=== PATIENT | male | born 1960 | race Caucasian/White ===

== ENCOUNTER 2022-12-02 11:01 | Inpatient (IN) | payer MEDICARE, MEDICAID ==
[~2022-12-02] VITALS: Ht 182.9 cm; Wt 112.0 kg
[2022-12-02] MEDS ORDERED: NITROGLYCERIN 0.4 MG SL TAB SL ONE ×2 (11:04→12:00)
[2022-12-02] MEDS ORDERED: FUROSEMIDE INJECTION 10 ML ONE (11:06)
[2022-12-02] MEDS ORDERED: FUROSEMIDE 40 MG/4 ML VIAL IV ONE (11:15)
[2022-12-02 11:54] LABS: Basophils # (auto) 0.1 10 ^3/uL (0-0.2); Basophils % (auto) 1.5 % (0.0-2.0); Eosinophils # (auto) 0.2 10 ^3/uL (0-0.8); Hematocrit 35.1 % (41.0-53.0); Hemoglobin 11.6 g/dL (13.5-17.5); Lymphocytes # (auto) 1.4 10 ^3/uL (0.4-5.4); Lymphocytes % (auto) 22.4 % (10.0-50.0); Mean Corpuscular Hemoglobin 32.4 pg (28.0-32.0); Mean Corpuscular Hgb Conc. 33.1 g/dL (32.0-36.0); Mean Corpuscular Volume 97.8 fL (80.0-100.0); Monocytes # (auto) 0.5 10 ^3/uL (0-1.3); Monocytes % (auto) 7.1 % (0.0-12.0); Neutrophils # (auto) 4.2 10 ^3/uL (1.6-8.6); Nucleated Red Blood Cells % 0.1 %; Red Blood Cells 3.59 10^6/uL (4.5-5.90); Red Cell Distribution Width 15.3 % (11.8-14.3); White Blood Cell 6.4 10^3/uL (4.4-10.8)
[2022-12-02] MEDS ORDERED: ACETAMINOPHEN 325 MG TAB PO PRN (12:30)
[2022-12-02] MEDS ORDERED: PANTOPRAZOLE 40 MG/10 ML VIAL INJ IV ONE (12:30)
[2022-12-02] MEDS ORDERED: DEXTROSE (50%) 50ML SYRG IV PRN (12:30)
[2022-12-02] MEDS ORDERED: NITROGLYCERIN 0.4 MG SL TAB SL PRN (12:30)
[2022-12-02] MEDS ORDERED: MORPHINE SULFATE INJ 2 MG/ml SYRG IV PRN (12:30)
[2022-12-02 13:12] VITALS: BP 123/81
[2022-12-02 13:54] LABS: Urine Bacteria FEW /hpf (None Seen); Urine Blood 2+ /uL (Negative); Urine Specific Gravity 1.012 (1.001-1.035); Urine WBC 858 /hpf (0 - 3); Urine WBC Clumps PRESENT /hpf (None Seen)
[2022-12-02 14:41] LABS: Alcohol, Urine < 3.0 mg/dL (0-10); Amphetamine Screen, Urine NEGATIVE (NEGATIVE); Barbiturate Scree,Urine NEGATIVE (NEGATIVE); Benzodiazephine Screen, Urine NEGATIVE (NEGATIVE); Cannabinoid Screen, Urine NEGATIVE (NEGATIVE); Cocaine Screen, Urine NEGATIVE (NEGATIVE); Opiate Scree,Urine NEGATIVE (NEGATIVE); Phencyclidine Screen, Urine NEGATIVE (NEGATIVE)
[2022-12-02] MEDS ORDERED: TAMS0.4C36 PO (14:42)
[2022-12-02] MEDS ORDERED: AZITHROMYCIN 500MG/ 250ML 250 ML IV ONE (15:00)
[2022-12-02] MEDS ORDERED: cefTRIAXone 1GM/50ML D5W 50 ML IV ONE (15:00)
[2022-12-02] MEDS ORDERED: hydrALAZINE HCL 20 MG/ML VL IV PRN (15:00)
[2022-12-02 15:45] LABS: Cholesterol 192 mg/dL (< 200); Triglycerides 93 mg/dL (< 150)
[2022-12-02 15:47] LABS: HDL Cholesterol 53 mg/dL (40-59); LDL Cholesterol 126 mg/dL (< 100)
[2022-12-02] MEDS: ACCU-CHEK COMFORT CURVE STRIP VI SCH ×2 (16:40→22:00)
[2022-12-02] MEDS: InsuLIN REG 1unit/0.01ml Soln (100units/ml) SC SCH ×2 (16:40→22:00)
[2022-12-02 17:39] LABS: Albumin 3.5 g/dL (3.4-5.0); Bilirubin, Total 0.4 mg/dL (0.2-1.0); Magnesium 2.8 mg/dL (1.6-2.6); Total Protein 6.6 g/dL (6.4-8.2)
[2022-12-02 17:42] LABS: Potassium 6.2 mmol/L (3.5-5.1)
[2022-12-02] MEDS ORDERED: SODIUM ZIRCONIUM CYCL 10 GM PAK PO ONE (20:30)
[2022-12-02 22:00] VITALS: BP 127/79
[2022-12-02] MEDS: CARVEDILOL 3.125 MG TAB PO SCH (22:33)
[2022-12-03] VITALS (7 sets, daily range): BP systolic 115–141; BP diastolic 70–81
[2022-12-03 06:13] LABS: Potassium 4.9 mmol/L (3.5-5.1)
[2022-12-03 06:23] LABS: Albumin 3.1 g/dL (3.4-5.0); BUN/Creatinine Ratio 6.3 (10.0-20.0); Bilirubin, Total 0.4 mg/dL (0.2-1.0); Total Protein 5.9 g/dL (6.4-8.2)
[2022-12-03] MEDS: ACCU-CHEK COMFORT CURVE STRIP VI SCH ×4 (06:26→22:18)
[2022-12-03] MEDS: InsuLIN REG 1unit/0.01ml Soln (100units/ml) SC SCH ×4 (06:26→22:00)
[2022-12-03 07:27] LABS: Basophils # (auto) 0.1 10 ^3/uL (0-0.2); Basophils % (auto) 1.9 % (0.0-2.0); Eosinophils # (auto) 0.2 10 ^3/uL (0-0.8); Eosinophils % (auto) 5.1 % (0.0-7.0); Hematocrit 27.9 % (41.0-53.0); Hemoglobin 9.5 g/dL (13.5-17.5); Lymphocytes % (auto) 21.8 % (10.0-50.0); Mean Corpuscular Hemoglobin 33.1 pg (28.0-32.0); Mean Corpuscular Hgb Conc. 34.1 g/dL (32.0-36.0); Monocytes # (auto) 0.6 10 ^3/uL (0-1.3); Neutrophils # (auto) 2.8 10 ^3/uL (1.6-8.6); Neutrophils % (auto) 59.2 % (37.0-80.0); Red Blood Cells 2.88 10^6/uL (4.5-5.90); White Blood Cell 4.7 10^3/uL (4.4-10.8)
[2022-12-03] MEDS: cefTRIAXone 1GM/50ML D5W 50 ML IV SCH (09:18)
[2022-12-03] MEDS: AZITHROMYCIN 500MG/ 250ML 250 ML IV SCH (09:21)
[2022-12-03] MEDS: PANTOPRAZOLE 40 MG/10 ML VIAL INJ IV SCH (09:21)
[2022-12-03] MEDS: FUROSEMIDE 40 MG/4 ML VIAL IV SCH (09:21)
[2022-12-03] MEDS: TAMSULOSIN HYDROCHLORIDE 0.4 MG CAP PO SCH (09:22)
[2022-12-03] MEDS: CARVEDILOL 3.125 MG TAB PO SCH ×2 (09:22→22:18)
[2022-12-03] MEDS: IPRATROPIUM BROM 0.5 MG/2.5ML INH SOL NEB PRN (19:14)
[2022-12-03] MEDS: ALBUTEROL SULF 2.5 MG/0.5ML(0.5%) NEB SOLN NEB PRN (19:14)
[2022-12-04] MEDS: IPRATROPIUM BROM 0.5 MG/2.5ML INH SOL NEB PRN ×2 (00:20→21:55)
[2022-12-04] MEDS: ALBUTEROL SULF 2.5 MG/0.5ML(0.5%) NEB SOLN NEB PRN ×2 (00:20→21:55)
[2022-12-04 05:00] VITALS: BP 120/76
[2022-12-04] MEDS: ACCU-CHEK COMFORT CURVE STRIP VI SCH ×2 (06:54→11:30)
[2022-12-04] MEDS: InsuLIN REG 1unit/0.01ml Soln (100units/ml) SC SCH ×2 (06:54→11:30)
[2022-12-04] MEDS ORDERED: SODIUM CHL 0.9% 1000 ML BAG XX ONE (07:00)
[2022-12-04 07:05] LABS: Hematocrit 27.3 % (41.0-53.0); Hemoglobin 9.4 g/dL (13.5-17.5)
[2022-12-04 09:00] VITALS: BP 132/78
[2022-12-04] MEDS: PANTOPRAZOLE 40 MG/10 ML VIAL INJ IV SCH (09:54)
[2022-12-04] MEDS: cefTRIAXone 1GM/50ML D5W 50 ML IV SCH (09:54)
[2022-12-04] MEDS: AZITHROMYCIN 500MG/ 250ML 250 ML IV SCH (09:54)
[2022-12-04] MEDS: TAMSULOSIN HYDROCHLORIDE 0.4 MG CAP PO SCH (09:56)
[2022-12-04] MEDS: CARVEDILOL 3.125 MG TAB PO SCH ×2 (10:00→22:51)
[2022-12-04] MEDS: FUROSEMIDE 40 MG/4 ML VIAL IV SCH (10:00)
[2022-12-04 13:00] VITALS: BP 142/92
[2022-12-04 17:01] VITALS: BP 133/81
[2022-12-04] MEDS ORDERED: ERGOCALCIFEROL 50,000 UNIT(1.25MG) CAP PO SCH (18:00)
[2022-12-04] MEDS ORDERED: EPOETIN ALFA-EPBX 4,000 UNIT/ML VIAL SC ONE (21:00)
[2022-12-04 22:00] VITALS: BP 120/71
[2022-12-05 05:00] VITALS: BP 136/68
[2022-12-05 06:54] LABS: Basophils # (auto) 0.1 10 ^3/uL (0-0.2); Basophils % (auto) 1.7 % (0.0-2.0); Eosinophils # (auto) 0.2 10 ^3/uL (0-0.8); Eosinophils % (auto) 4.6 % (0.0-7.0); Hematocrit 26.1 % (41.0-53.0); Lymphocytes # (auto) 1.3 10 ^3/uL (0.4-5.4); Lymphocytes % (auto) 30.7 % (10.0-50.0); Mean Corpuscular Hemoglobin 33.2 pg (28.0-32.0); Mean Corpuscular Hgb Conc. 34.5 g/dL (32.0-36.0); Mean Corpuscular Volume 96.4 fL (80.0-100.0); Monocytes # (auto) 0.5 10 ^3/uL (0-1.3); Monocytes % (auto) 12.7 % (0.0-12.0); Neutrophils # (auto) 2.1 10 ^3/uL (1.6-8.6); Neutrophils % (auto) 50.3 % (37.0-80.0); Red Cell Distribution Width 14.7 % (11.8-14.3); White Blood Cell 4.3 10^3/uL (4.4-10.8)
[2022-12-05 07:12] LABS: BUN/Creatinine Ratio 6.6 (10.0-20.0); Calcium 7.8 mg/dL (8.5-10.1); Potassium 5.4 mmol/L (3.5-5.1)
[2022-12-05 08:00] VITALS: BP 127/98
[2022-12-05] MEDS: ALBUTEROL SULF 2.5 MG/0.5ML(0.5%) NEB SOLN NEB PRN ×3 (08:30→22:19)
[2022-12-05] MEDS: IPRATROPIUM BROM 0.5 MG/2.5ML INH SOL NEB PRN ×3 (08:30→22:19)
[2022-12-05] MEDS: cefTRIAXone 1GM/50ML D5W 50 ML IV SCH (08:54)
[2022-12-05 09:00] VITALS: BP 127/98
[2022-12-05] MEDS: FUROSEMIDE 40 MG/4 ML VIAL IV SCH (09:50)
[2022-12-05] MEDS: TAMSULOSIN HYDROCHLORIDE 0.4 MG CAP PO SCH (09:51)
[2022-12-05] MEDS: CARVEDILOL 3.125 MG TAB PO SCH ×2 (09:51→22:09)
[2022-12-05] MEDS: PANTOPRAZOLE 40 MG/10 ML VIAL INJ IV SCH (09:51)
[2022-12-05] MEDS: AZITHROMYCIN 500MG/ 250ML 250 ML IV SCH (09:51)
[2022-12-05 12:46] VITALS: BP 115/75
[2022-12-05 13:02] LABS: Hepatitis B Core IgM Negative; Hepatitis C Antibody Negative (Negative)
[2022-12-05 13:04] LABS: Hepatitis A Ab IgM Negative
[2022-12-05 17:00] VITALS: BP 133/85
[2022-12-05 21:32] VITALS: BP 137/90
[2022-12-05] MEDS: CIPROFLOXACIN HCL 500 MG TAB PO SCH (22:08)
[2022-12-06] MEDS ORDERED: MELATONIN 5 MG TAB PO ONE (01:15)
[2022-12-06 05:00] VITALS: BP 123/73
[2022-12-06] MEDS ORDERED: SODIUM CHL 0.9% 1000 ML BAG XX ONE (07:00)
[2022-12-06] MEDS: FUROSEMIDE 40 MG/4 ML VIAL IV SCH (08:51)
[2022-12-06] MEDS: TAMSULOSIN HYDROCHLORIDE 0.4 MG CAP PO SCH (08:51)
[2022-12-06] MEDS: PANTOPRAZOLE 40 MG/10 ML VIAL INJ IV SCH (08:51)
[2022-12-06] MEDS: CIPROFLOXACIN HCL 500 MG TAB PO SCH ×2 (08:51→21:27)
[2022-12-06] MEDS: CARVEDILOL 3.125 MG TAB PO SCH ×2 (08:52→21:36)
[2022-12-06 09:00] VITALS: BP 149/84
[2022-12-06 12:47] VITALS: BP 115/75
[2022-12-06 15:46] LABS: Hematocrit 26.1 % (41.0-53.0)
[2022-12-06 17:00] VITALS: BP 145/75
[2022-12-06] MEDS ORDERED: EPOETIN ALFA-EPBX 4,000 UNIT/ML VIAL SC ONE (21:00)
[2022-12-06 22:00] VITALS: BP 130/82
[2022-12-07 05:00] VITALS: BP 129/75
[2022-12-07 09:00] VITALS: BP 121/71
[2022-12-07] MEDS: ALBUTEROL SULF 2.5 MG/0.5ML(0.5%) NEB SOLN NEB PRN (09:35)
[2022-12-07] MEDS: IPRATROPIUM BROM 0.5 MG/2.5ML INH SOL NEB PRN (09:35)
[2022-12-07] MEDS: PANTOPRAZOLE 40 MG/10 ML VIAL INJ IV SCH (10:39)
[2022-12-07] MEDS: FUROSEMIDE 40 MG/4 ML VIAL IV SCH (10:40)
[2022-12-07] MEDS: TAMSULOSIN HYDROCHLORIDE 0.4 MG CAP PO SCH (10:40)
[2022-12-07] MEDS: CIPROFLOXACIN HCL 500 MG TAB PO SCH (10:41)
[2022-12-07] MEDS: CARVEDILOL 3.125 MG TAB PO SCH (10:42)
[2022-12-07 11:48] VITALS: BP 121/71
[2022-12-07 13:04] VITALS: BP 134/84
== END 2022-12-07 15:30 | DRG 177 ==
LOC: EDBD 11:01 → ER 11:01 → TELE 12:48 → TELE-WESTW 21:11
PROVIDERS: ADMIT Nurse Practitioner Family; ATTEND Internal Medicine
PROC: 5A09357 Assistance with Respiratory Ventilation, Less than 24 Consecutive Hours, Continuous Positive Airway Pressure (ICD-10-PCS; principal; 2022-12-02)
PROC: 5A1D70Z Performance of Urinary Filtration, Intermittent, Less than 6 Hours Per Day (ICD-10-PCS; 2022-12-03)
DX: J15.6 Pneumonia due to other Gram-negative bacteria (principal); I50.43 Acute on chronic combined systolic (congestive) and diastolic (congestive) heart failure; J96.01 Acute respiratory failure with hypoxia; N18.6 End stage renal disease; I13.2 Hypertensive heart and chronic kidney disease with heart failure and with stage 5 chronic kidney disease, or end stage renal disease; N17.9 Acute kidney failure, unspecified; R65.10 Systemic inflammatory response syndrome (SIRS) of non-infectious origin without acute organ dysfunction; E87.1 Hypo-osmolality and hyponatremia; N30.00 Acute cystitis without hematuria; E44.0 Moderate protein-calorie malnutrition; E55.9 Vitamin D deficiency, unspecified; E66.01 Morbid (severe) obesity due to excess calories; E11.22 Type 2 diabetes mellitus with diabetic chronic kidney disease; D63.1 Anemia in chronic kidney disease; E87.5 Hyperkalemia; F10.10 Alcohol abuse, uncomplicated; F17.210 Nicotine dependence, cigarettes, uncomplicated; Z99.2 Dependence on renal dialysis; Z68.33 Body mass index [BMI] 33.0-33.9, adult
CPT/HCPCS: 36415; 36600; 71045; 80048; 80053; 80061; 80074; 80307; 81001; 82306; 82805; 82962; 83036; 83605; 83735; 83880; 84132; 84439; 84443; 84484; 85014; 85018; 85025; 87040; 87070; 87081; 87086; 87088; 87186; 87205; 90935; 93005; 93306; 94640; 94660; 96365; 96367; 96375; 99291; C9113; G0378; J0696; J1642